=== PATIENT | male | born 1960 | race Caucasian/White ===

== ENCOUNTER 2022-04-19 07:28 | Day surgery (SDC) | payer BC ==
[~2022-04-19] VITALS: Ht 185.4 cm; Wt 81.7 kg
[2022-04-19] MEDS ORDERED: MELATIN 3 MG-11 TAB PO (08:17)
[2022-04-19] MEDS ORDERED: VALTREX 50500 MG/TAB PO (08:18)
[2022-04-19 08:27] VITALS: BP 148/90; PULSE 65; TEMP 97.8
[2022-04-19 09:05] VITALS: BP 123/87; PULSE 60; TEMP 97.9
--- NOTE | 2022-04-19 09:05 | NUR ---
Pt returns to [place] [address] and ambulates to recliner easily. Denies pain or nausea. at bedside. Call light in reach. Pt provided with coffee and muffin.
[2022-04-19 09:20] VITALS: BP 127/95; PULSE 65
[2022-04-19 09:35] VITALS: BP 136/84; PULSE 54
--- NOTE | 2022-04-19 09:45 | NUR ---
Pt doing well, denies needs. Discharges instructions provided to pt and and IV discontinued. Dr. Chaves to bedside and talks with pt. Pt gets dressed and is taken to private car with by RANDEE Pena via wheelchair.
[2022-04-19 16:34] VITALS: BP 114/74; PULSE 50
== END 2022-04-19 09:45 | disposition home or self-care (01) ==
LOC: SDCO 07:28
DX: Z12.11 Encounter for screening for malignant neoplasm of colon (principal); D12.5 Benign neoplasm of sigmoid colon
CPT/HCPCS: J2704; J3010; J7120